=== PATIENT | female | born 2005 | race Two or more races ===

== ENCOUNTER 2025-03-03 16:59 | Emergency (ER) | payer OTHER ==
[~2025-03-03] VITALS: Ht 165.1 cm; Wt 104.3 kg
[2025-03-03] MEDS ORDERED: CEFTRIAXONE SODIUM 2,000 MG VIAL IV STA (17:55)
[2025-03-03] MEDS ORDERED: CEFTRIAXONE SODIUM 2,000 MG VIAL ONE (18:22)
[2025-03-03 19:27] LABS: BASO % 0.4 % (0.1-1.2); EOS # 0.12 (0.04-0.54); EOS % 1.3 % (0.7-7.0); LYMPH # 3.33 (1.18-3.74); LYMPH % 36.6 % (19.3-53.1); MEAN PLATELET VOLUME 9.60 fl (9.4-12.4); MONO # 0.56 (0.24-0.82); MONO % 6.2 % (4.7-12.5); NEUT # 5.01 (1.56-6.13); NEUT % 55.2 % (34.0-71.1); RED CELL DISTRIBUTION WIDTH 15.8 % (11.6-14.4)
[2025-03-03 19:42] LABS: ERYTHROCYTE SEDIMENTATION RATE 73 mm/hr (0-20)
[2025-03-03 19:49] LABS: ALT/SGPT 21.0 U/L (12-78); AST/SGOT 15.0 U/L (15-37); BILIRUBIN TOTAL 0.2 mg/dL (0.3-1.2); BUN CREA RATIO 21.0 (7.0-25.0); CREATININE SERUM 0.68 mg/dL (0.55-1.02); GFR 109.22; GLOBULINA 4.0 G/DL (2.4-3.5); GLUCOSE FASTING 108.0 mg/dL (65-100); OSMOLALITY SERUM 282.0 MOSM/KG (275-295)
[2025-03-03 22:03] VITALS: BP 102/67; O2SAT 99
== END 2025-03-03 22:04 | disposition home or self-care (01) ==
LOC: ER 17:29
PROVIDERS: General Practice
DX: B35.8 Other dermatophytoses (principal)